=== PATIENT | female | born 1970 | race Hispanic/Latino ===

== ENCOUNTER → 2018-08-21 | Outpatient (CLI) | payer BC ==
[~2018-08-21] VITALS: Ht 165.1 cm; Wt 71.6 kg
[~2018-08-21] MED LIST: APIX5TAB PO; DABI150C PO; DRON400T2 PO; FURO80TA3 PO; MEDR150D9 IM; METO2.5T2 PO; POTASSIUM CHLORIDE 10MEQ/100ML 100 ML IV SCH; SODIUM CHLORIDE 0.9% 1000ML 1,000 ML IV SCH; SPIR25TA6 PO; SPIR50TA5 PO; VERA180C2 PO; VERA300C2 PO; digoxin PO
[2018-08-21 12:23] LABS: BASOPHILS % (AUTO) 0.6 % (0.0-5.0); EOSINOPHILS % (AUTO) 1.8 % (0.0-8.0); HEMATOCRIT 39.4 % (36-48); LYMPHOCYTES % (AUTO) 14.8 % (21.0-51.0); MEAN CORPUSCULAR HEMOGLOBIN 30.2 pg (27.0-33.0); MEAN CORPUSCULAR HGB CONC 34.1 g/dL (32.0-36.0); MEAN CORPUSCULAR VOLUME 88.6 fL (79-99); MONOCYTES % (AUTO) 4.6 % (3.0-13.0); NEUTROPHILS % (AUTO) 78.2 % (40.0-77.0); PLATELET COUNT (AUTO) 373 K/uL (130-400); RED BLOOD CELL COUNT(AUTO) 4.45 MIL/uL (4.00-5.50); RED CELL DISTRIBUTION WIDTH 14.3 % (11.0-15.5); WHITE BLOOD COUNT (AUTO) 16.7 K/uL (4.8-10.8)
[2018-08-21 12:30] LABS: CREATININE 1.1 mg/dL (0.5-1.5); POTASSIUM 3.1 mmol/L (3.5-5.1)
[2018-08-21 12:36] LABS: INR 0.99 (0.85-1.15); PARTIAL THROMBOPLASTIN TIME 36.9 SEC (26.3-35.5); PROTHROMBIN TIME 10.4 SEC (9.6-11.6)
[2018-08-21 12:43] VITALS: BP 117/59
--- NOTE | 2018-08-22 09:45 | NUR ---
LATE ENTRY: ABNORMAL LABS CALLED SAVITA PAUL TO REPORT ABNORMAL LABS; POTASSIUM 3.1, CL 95, WBC 16.7. PER OLEG, TO REPORT TO DR. SMITH.
--- NOTE | 2018-08-22 09:55 | NUR ---
ABNORMAL LABS CALLED ASVITA TALBERT TO REPORT POTASSIUM 3.1, CL 95, WBC 16.7. PER NASIMA, HE WILL CALL BACK WITH ORDERS. CALL BACK NUMBER PROVIDED.
--- NOTE | 2018-08-22 10:00 | NUR ---
ORDERS CALL BACK FROM SAVITA TALBERT. STATED OK TO PROCEED WITH KRISTI. GIVE POTASSIUM 20 MEQ/100ML INFUSE FOR 2 HOURS. MAY BE INFUSED WHILE DOING PROCEDURE.
--- NOTE | 2018-08-22 18:20 | NUR ---
PER DR. CURTIS, CANCEL PROCEDURE DUE TO ELEVATED WBC. WILL RESCHEDULE FOR NEXT WEEK. PT WILL GO TO HEART CLINIC ON Sunday08/27/2018 FOR REPEAT CBC. PT NOTIFIED.
== END ==
LOC: DAH 10:00 → EDSTATUS 11:00
PROVIDERS: ATTEND Internal Medicine Cardiovascular Disease
DX: Z01.818 Encounter for other preprocedural examination (principal); I48.1 Persistent atrial fibrillation
CPT/HCPCS: 36415; 80048; 84703; 85025; 85610; 85730

== ENCOUNTER 2018-09-30 07:55 | Day surgery (SDC) | payer BC ==
[2018-09-27 16:22] VITALS: BP 99/54
[2018-09-27 16:26] LABS: BASOPHILS % (AUTO) 0.9 % (0.0-5.0); EOSINOPHILS % (AUTO) 2.1 % (0.0-8.0); HEMATOCRIT 43.9 % (36-48); LYMPHOCYTES % (AUTO) 20.4 % (21.0-51.0); MEAN CORPUSCULAR HEMOGLOBIN 29.4 pg (27.0-33.0); MEAN CORPUSCULAR HGB CONC 33.9 g/dL (32.0-36.0); MEAN CORPUSCULAR VOLUME 86.6 fL (79-99); MONOCYTES % (AUTO) 5.9 % (3.0-13.0); NEUTROPHILS % (AUTO) 70.7 % (40.0-77.0); PLATELET COUNT (AUTO) 434 K/uL (130-400); RED BLOOD CELL COUNT(AUTO) 5.07 MIL/uL (4.00-5.50); RED CELL DISTRIBUTION WIDTH 13.6 % (11.0-15.5); WHITE BLOOD COUNT (AUTO) 15.4 K/uL (4.8-10.8)
[2018-09-27 16:43] LABS: CREATININE 1.2 mg/dL (0.5-1.5)
[2018-09-27 17:00] LABS: INR 1.01 (0.85-1.15); PARTIAL THROMBOPLASTIN TIME 40.4 SEC (26.3-35.5); PROTHROMBIN TIME 10.6 SEC (9.6-11.6)
--- NOTE | 2018-09-27 17:15 | NUR ---
LABS INFORMED JORGE CRENSHAW OF ABNORMAL WBC AND POTASSIUM. ORDERS RECEIVED TO REDRAW BMP AND COLLECT UA ON AM OF PROCEDURE AND CALL PT TO HAVE HER TAKE HER POTASSIUM SUPPLEMENT OF 20MEQ BID INSTEAD OF DAILY. PROCEED WITH PLANNED PROCEDURE. CALLED PT ANF INFORMED TO START HER POTASSIUM 20 MEQ BID TODAY INSTEAD OF DAILY. VERBALIZED UNDERSTANDING.
[2018-09-30] VITALS (31 sets, daily range): BP systolic 90–132; BP diastolic 36–74
[~2018-09-30] VITALS: Ht 165.1 cm; Wt 71.9 kg
[~2018-09-30 07:55] MED LIST changes: -DABI150C PO; -POTASSIUM CHLORIDE 10MEQ/100ML 100 ML IV SCH; -SPIR25TA6 PO; +VERA180T13 PO; -VERA300C2 PO; -digoxin PO
[2018-09-30] MEDS ORDERED: MIDAZOLAM HCL 1 MG/ML 2ML VIAL ONE (08:03)
[2018-09-30] MEDS ORDERED: LIDOCAINE HCL 2% VISCOUS 15 ML UDCUP ONE (08:04)
[2018-09-30] MEDS ORDERED: FLUMAZENIL 0.1MG/1ML 5ML VIAL IV ONE (08:05)
[2018-09-30] MEDS ORDERED: NALOXONE HCL 0.4 MG/1 ML ML ONE (08:05)
[2018-09-30] MEDS ORDERED: FENTANYL CITRATE PF 50 MCG/1 ML 2ML VIAL ONE (08:13)
[2018-09-30 08:56] LABS: APPEARANCE,URINE Clear (CLEAR); BILIRUBIN,URINE Negative (NEGATIVE); COLOR,URINE Yellow (YELLOW); GLUCOSE, URINE (UA) Negative (NEGATIVE); KETONES,URINE Negative (NEGATIVE); LEUKOCYTE ESTERASE ,URINE Negative (NEGATIVE); NITRATE,URINE Negative (NEGATIVE); OCCULT BLOOD,URINE Trace (NEGATIVE); PH,URINE 6.5 (5.0-8.0); PROTEIN,URINE Negative (NEGATIVE); UROBILINOGEN,URINE 0.2 mg/dL (0.2-1.0)
[2018-09-30 09:02] LABS: CREATININE 1.1 mg/dL (0.5-1.5)
[2018-09-30 09:05] LABS: BACTERIA,URINE Rare /HPF (None Seen); RBC,URINE 0-1 /HPF (0-1); SQUAMOUS EPITHELIAL CELL,UR Rare /HPF (0-2); WBC,URINE 0-1 /HPF (0-1)
--- NOTE | 2018-09-30 12:30 | NUR ---
PROCEDURE KRISTI DR. CURTIS, KISHOR DERAS, SHELBI AND MYSELF IN ROOM. PT AWAKE ALERT ORIENTED X3. TIME OUT AT 1233. LIDOCAINE VISCOUS 15ML GIVEN ORALLY BY KISHOR DERAS [facility]. PT TOLERATED WELL. DR. CURTIS ORDER SEDATION, STARTED AT 1237. PLEASE SEE SEDATION FLOW SHEET. LAST DOSE OF SEDATION AT 1306. DR. CURTIS STARTED PROCEDURE, INSERTED SCOPE AT 1306. PT TOLERATING WELL, RESPONDED TO COMMANDS WELL, NOT IN ANY DISTRESS. BUBBLE STUDY AT 1314. PROCEDURE ENDED, SCOPE OUT AT 1322. PT AWAKE, TOLERATED PROCEDURE WELL. MD OUT OF ROOM AT 1338. Addendum: 09/30/18 at 1946 by RAHUL VARELA RN RN ADDENDUM: DR. CURTIS ORDERS TO HAVE IV FLUIDS NS 100 ML/HR DURING PROCEDURE, NS WIDE OPEN DURING LAST DOSE OF SEDATION.
--- NOTE | 2018-09-30 13:22 | NUR ---
IV FLUIDS NS BACK TO K[facility]
--- NOTE | 2018-09-30 13:44 | NUR ---
ORDERS DR. CURTIS DISCHARGE ORDERS, MAY DISCHARGE IN AN HOUR IF FULLY AWAKE. MAY HAVE DIET WHEN FULLY AWAKE. RESUME ALL MEDICATIONS, NO CHANGES, FOLLOW UP WITH DR. SMITH IN 1 WEEK.
--- NOTE | 2018-09-30 15:00 | NUR ---
DISCHARGE PT DISCHARGED VIA WHEELCHAIR WITH . PT STABLE. NO COMPLAINTS MADE. TOLERATED DIET WELL. DISCHARGE INSTRUCTIONS GIVEN TO AND PT, VERBALIZED UNDERSTANDING.
== END 2018-09-30 15:00 | disposition home or self-care (01) ==
LOC: DAH 07:55 → EDSTATUS 15:00 → DAH 15:00
PROVIDERS: ATTEND Internal Medicine Cardiovascular Disease
DX: I48.1 Persistent atrial fibrillation (principal); I05.2 Rheumatic mitral stenosis with insufficiency; R06.00 Dyspnea, unspecified; Z98.890 Other specified postprocedural states; Z88.0 Allergy status to penicillin; Z88.8 Allergy status to other drugs, medicaments and biological substances; Z95.2 Presence of prosthetic heart valve; Z79.899 Other long term (current) drug therapy
CPT/HCPCS: 36415 ×2; 80048 ×2; 81001; 84703; 85025; 85610; 85730; 93312; 93325; A4606; J2250; J3010; J7030; 93313; 99152; 99153; J2310; J3490

== ENCOUNTER 2019-02-06 08:16 | Day surgery (SDC) | payer BC ==
[2019-02-05 17:30] VITALS: BP 106/79
[2019-02-05 17:37] LABS: BASOPHILS % (AUTO) 0.7 % (0.0-5.0); EOSINOPHILS % (AUTO) 3.3 % (0.0-8.0); HEMATOCRIT 41.4 % (36-48); LYMPHOCYTES % (AUTO) 27.4 % (21.0-51.0); MEAN CORPUSCULAR HEMOGLOBIN 30.6 pg (27.0-33.0); MEAN CORPUSCULAR HGB CONC 34.4 g/dL (32.0-36.0); MEAN CORPUSCULAR VOLUME 89.2 fL (79-99); MONOCYTES % (AUTO) 5.3 % (3.0-13.0); NEUTROPHILS % (AUTO) 63.3 % (40.0-77.0); PLATELET COUNT (AUTO) 267 K/uL (130-400); RED BLOOD CELL COUNT(AUTO) 4.64 MIL/uL (4.00-5.50); RED CELL DISTRIBUTION WIDTH 13.5 % (11.0-15.5); WHITE BLOOD COUNT (AUTO) 11.3 K/uL (4.8-10.8)
[2019-02-05 17:58] LABS: POTASSIUM 2.7 mmol/L (3.5-5.1)
--- NOTE | 2019-02-05 18:00 | NUR ---
LAB ATTEMPT TO CALL DR. BASURTO TO REPORT K+ 2.7, MESSAGE LEFT ON HIS CELL PHONE, AWAITING FOR FURTHER ORDERS .
[2019-02-05 18:01] LABS: INR 0.97 (0.85-1.15); PARTIAL THROMBOPLASTIN TIME 26.3 SEC (26.3-35.5)
--- NOTE | 2019-02-05 18:13 | NUR ---
LAB RECEIVED CALL BACK FROM DR. BASURTO. PATIENT TO TAKE POTASSIUM 40 MEQ TONIGHT AND IN AM, WILL RECHECK K+ AND MAG LEVELS IN AM, PATIENT WAS CALLED AND INSTRUCTED ON THAT, SHE VERBALIZED UNDERSTANDING.
--- NOTE | 2019-02-05 18:16 | NUR ---
LABS ALSO REPORTED ELEVATED WBC, NO FURTHER ORDERS GIVEN ON THAT
[~2019-02-06] VITALS: Ht 163.8 cm; Wt 71.9 kg
[2019-02-06] VITALS (17 sets, daily range): BP systolic 73–108; BP diastolic 52–75
[~2019-02-06 08:16] MED LIST changes: -DRON400T2 PO; +POTA-79 PO; +PROP225C8 PO; -VERA180C2 PO
--- NOTE | 2019-02-06 09:25 | NUR ---
RE:HYPERTENSION INFORMED SAVITA SMITH REGARDING LOW BLOOD PRESSURE 87/61 AND PULSE 146. PATIENT ASYMPTOMATIC AND TOOK ALL HER BP MEDS THIS MORNING. PER LUIS, OK TO PROCEED WITH CARDIOVERSION AND CALL BACK IF PATIENT BECOMES UNSTABLE. INFORMED LUIS REGARDING PATIENT'S POTASSIUM LEVEL 3.4 AND MAGNESIUM 1.70. NO NEW ORDERS RECEIVED.
[2019-02-06 09:38] LABS: MAGNESIUM 1.7 mg/dL (1.80-2.40); POTASSIUM 3.4 mmol/L (3.5-5.1)
[2019-02-06] MEDS ORDERED: PROPOFOL 10 MG/ML 20ML VIAL IV ONE (10:14)
[2019-02-06] MEDS ORDERED: SUCCINYLCHOLINE 200MG/10ML SYR ONE (10:14)
--- NOTE | 2019-02-06 11:00 | NUR ---
PT TIME OUT CALLED, FOR CARDIOVERSION, PERSONS IN ROOM ARE DR. BASURTO, DR. LANGE, TARYN ARCE RN , TOSHIA KRISHNAN RN
--- NOTE | 2019-02-06 11:02 | NUR ---
PROCEDURE STARTED, PRE VS 1268/52, HR 73, SPO2 100 @ 4 LITERS RESP 15
--- NOTE | 2019-02-06 11:03 | NUR ---
PT CHARGED AT 200 J WITH NO CONVERSIONS, PT TOLERATED 1 ST ATTEMPT
--- NOTE | 2019-02-06 11:04 | NUR ---
2 ND ATTEMPT TO CARDIOVERT @ 200J, PT CONVERTED NORMAL SINUS PER DR. DANIELSON,.
--- NOTE | 2019-02-06 11:04 | NUR ---
PT V/S AFTER 1 ST ATTEMPT CARDIO VERSION 88/65, HR 130,SPO2 100 % @ 4 LITERS N/C, 20 RESP . PT STABLE
--- NOTE | 2019-02-06 11:05 | NUR ---
PT STABLE IN NORMAL SINUS, V/S POST 99/66, 88 HR, SPO2 95 RESP, 17,
--- NOTE | 2019-02-06 11:06 | NUR ---
PT NOT FULLY AWAKE YET, STABLE V/S 99/60, SPO2 96 ON RM AIR RESP 14, HR 76. WILL CONTINUE TO MONITOR PT.
--- NOTE | 2019-02-06 11:07 | NUR ---
PT AWAKE STILL DROWSY, ABLE TO FOLLOW COMMANDS, AND STABLE, VS 97/58, HR 94, RESP 14, SPO2 96. WILL CONTINUE TO MONITOR PATIENT
--- NOTE | 2019-02-06 11:08 | NUR ---
PT FULLY AWAKE, HR, 93, 97 SPO2, RESP 14, B/P 97/58, FAMILY AT BEDSIDE NO COMPLICATION WITH PROCEDURE.
--- NOTE | 2019-02-06 11:12 | NUR ---
PER SHERINE PUENTES GIVE VERBAL ORDER OF 10MEQ IV, AND 2 MG OF MAGNESIUM IV. K IS 3.4 PT STABLE VS, 90HR , 100%, RES 22, B/P 93/59. WILL CONTINUE TO MONITOR, PT. FULLY AWAY, NO COMPILATION OR PAIN STILL IN SINUS
[2019-02-06] MEDS ORDERED: POTASSIUM CHLORIDE 10MEQ/100ML 10 MEQ/100 ML ML IV SCH (11:30)
[2019-02-06] MEDS ORDERED: MAGNESIUM 2GM PREMIX 50ML 50 ML IV PRN (11:30)
[2019-02-06] MEDS ORDERED: POTASSIUM CHLORIDE 20MEQ/100ML 100 ML IV PRN (11:45)
[2019-02-06] MEDS ORDERED: LIDOCAINE HCL-MPF 1% 2ML VIAL IV PRN (11:45)
[2019-02-06] MEDS ORDERED: POTASSIUM CHLORIDE 10MEQ/100ML 100 ML IV PRN (12:15)
--- NOTE | 2019-02-06 12:45 | NUR ---
K STARTED WITH 1 ML OF LIDOCAINE. 60ML HR
[2019-02-06] MEDS ORDERED: POTASSIUM CHLORIDE 10MEQ/100ML 100 ML IV ONE (13:00)
[2019-03-06] MEDS ORDERED: POTA-79 PO (16:35)
[2019-03-06] MEDS ORDERED: METO-408 PO (16:35)
== END 2019-02-06 16:00 | disposition home or self-care (01) ==
LOC: DAH 08:16
PROVIDERS: ATTEND Internal Medicine Cardiovascular Disease
DX: I48.19 Other persistent atrial fibrillation (principal); I50.32 Chronic diastolic (congestive) heart failure; I48.3 Typical atrial flutter; G43.909 Migraine, unspecified, not intractable, without status migrainosus; Z88.0 Allergy status to penicillin; Z91.018 Allergy to other foods; Z88.8 Allergy status to other drugs, medicaments and biological substances; Z90.49 Acquired absence of other specified parts of digestive tract; Z79.01 Long term (current) use of anticoagulants; Z79.899 Other long term (current) drug therapy; Z98.890 Other specified postprocedural states; Z82.49 Family history of ischemic heart disease and other diseases of the circulatory system; Z83.3 Family history of diabetes mellitus
CPT/HCPCS: 36415 ×2; 80048; 83735; 84132; 84703; 85025; 85610; 85730; 92960; 93005 ×2; 96365; 96366; A4215; A4216; A4221; A4222; A4223 ×3; A4606; A4663; J0330; J2704; J3475; J3490; 99156

== ENCOUNTER 2019-03-07 05:58 | Day surgery (SDC) | payer BC ==
[2019-03-06 15:57] VITALS: BP 83/61
[2019-03-06 16:04] LABS: BASOPHILS % (AUTO) 0.7 % (0.0-5.0); EOSINOPHILS % (AUTO) 5.3 % (0.0-8.0); LYMPHOCYTES % (AUTO) 31.7 % (21.0-51.0); MEAN CORPUSCULAR HEMOGLOBIN 29.9 pg (27.0-33.0); MEAN CORPUSCULAR HGB CONC 33.3 g/dL (32.0-36.0); MEAN CORPUSCULAR VOLUME 89.7 fL (79-99); MONOCYTES % (AUTO) 7.6 % (3.0-13.0); NEUTROPHILS % (AUTO) 54.4 % (40.0-77.0); PLATELET COUNT (AUTO) 343 K/uL (130-400); RED BLOOD CELL COUNT(AUTO) 4.68 MIL/uL (4.00-5.50); RED CELL DISTRIBUTION WIDTH 13.5 % (11.0-15.5); WHITE BLOOD COUNT (AUTO) 9.4 K/uL (4.8-10.8)
[2019-03-06 16:17] LABS: INR 1.04 (0.85-1.15); PARTIAL THROMBOPLASTIN TIME 28.8 SEC (26.3-35.5); PROTHROMBIN TIME 10.9 SEC (9.6-11.6)
[2019-03-06 16:18] LABS: CREATININE 1.2 mg/dL (0.5-1.5); POTASSIUM 3.6 mmol/L (3.5-5.1)
--- NOTE | 2019-03-06 16:36 | NUR ---
PT TAKING SEVERAL BLOOD PRESSURE MEDICATIONS, I CALLED LUIS BARNEY AND ADVISED HER PT BP 83/61, NEW ORDER TO HOLD FUROSEMIDE AND SPIRONOLACTONE AND METOPROLOL BUT PT STATED SHE TOOK THE EVENING DOSES ALREADY, ADVISED PT TO HOLD FUROSEMIDE AND SPIRONOLACTONE IN AM AND TO BRING ALL HER BP MEDS PER LUIS LARA.
[~2019-03-07] VITALS: Ht 162.6 cm; Wt 72.0 kg
[2019-03-07] VITALS (10 sets, daily range): BP systolic 83–99; BP diastolic 52–63
[~2019-03-07 05:58] MED LIST changes: +METO-408 PO
[2019-03-07] MEDS ORDERED: ATROPINE SULFATE 0.1 MG/ML 10 ML SYG IVP ONE (07:40)
[2019-03-07] MEDS ORDERED: LIDOCAINE PF 2% 5ML ABBOJECT ONE (07:52)
[2019-03-07] MEDS ORDERED: PROPOFOL 10 MG/ML 20ML VIAL IV ONE (07:52)
[2019-03-07] MEDS ORDERED: SUCCINYLCHOLINE 200MG/10ML SYR ONE (07:52)
--- NOTE | 2019-03-07 09:00 | NUR ---
CARDIOVERSION WITH ANESTESIA PERFORMED AT BEDSIDE BY DR BASURTO TIME OUT DONE: 8:17 AM STARTED AT 8:18 AM SHOCKED TIME X 1 DELIVERED AT 8:19 AM @ 15 JOULES FINISHED PROCEDURE TIME 8:20 AM RECOVERY STARED AT0 8:20 AM PT TOLERATED WELL WITH NO DISCOMFORT. PATIENT CONVERTED , VS STABLE AND BOTH DR. BASURTO AND DR. GALLAGHER OUT OF THE ROOM AT 8:29 AM. MD SPOKE WITH FAMILY PT WILL BE DISCHARGED WHEN FULLY AWAKE AND STABLE
--- NOTE | 2019-03-07 09:30 | NUR ---
PT. LEFT VIA WHEELCHAIR IN PVT CAR, WITH D/C INSTRUCTION GIVEN TO MOTHER. NO COMPLICATION UPON D/C PT IN SR AND STABLE.
== END 2019-03-07 09:30 | disposition home or self-care (01) ==
LOC: DAH 05:58
PROVIDERS: ATTEND Internal Medicine Cardiovascular Disease
DX: I48.91 Unspecified atrial fibrillation (principal); I50.9 Heart failure, unspecified; Z79.899 Other long term (current) drug therapy
CPT/HCPCS: 36415; 80048; 84703; 85025; 85610; 85730; 92960; 93005 ×2; A4215; A4216; A4221; A4222; A4223 ×3; A4606; A4663; J0330; J2001; J2704; J7030; J0461

== ENCOUNTER 2019-08-04 07:42 | Inpatient (IN) | payer BC, OTHER ==
[~2019-08-04] VITALS: Ht 162.6 cm; Wt 71.8 kg
[~2019-08-04 07:42] MED LIST changes: -SODIUM CHLORIDE 0.9% 1000ML 1,000 ML IV SCH
[2019-08-04 08:12] LABS: BASOPHILS % (AUTO) 0.7 % (0.0-5.0); EOSINOPHILS % (AUTO) 4.7 % (0.0-8.0); HEMATOCRIT 39.4 % (36-48); LYMPHOCYTES % (AUTO) 33.9 % (21.0-51.0); MEAN CORPUSCULAR HEMOGLOBIN 29.9 pg (27.0-33.0); MEAN CORPUSCULAR HGB CONC 33.5 g/dL (32.0-36.0); MEAN CORPUSCULAR VOLUME 89.1 fL (79-99); MONOCYTES % (AUTO) 6.3 % (3.0-13.0); NEUTROPHILS % (AUTO) 54.2 % (40.0-77.0); PLATELET COUNT (AUTO) 278 K/uL (130-400); RED BLOOD CELL COUNT(AUTO) 4.42 MIL/uL (4.00-5.50); RED CELL DISTRIBUTION WIDTH 13.3 % (11.0-15.5); WHITE BLOOD COUNT (AUTO) 8.1 K/uL (4.8-10.8)
[2019-08-04 08:24] LABS: INR 0.98 (0.85-1.15); PARTIAL THROMBOPLASTIN TIME 29.4 SEC (26.3-35.5); PROTHROMBIN TIME 10.6 SEC (9.6-11.6)
[2019-08-04 08:46] LABS: POTASSIUM 3.4 mmol/L (3.5-5.1)
[2019-08-04 08:51] LABS: BILIRUBIN,TOTAL 0.6 mg/dL (0.2-1.0); TOTAL PROTEIN, SERUM 7.5 g/dL (6.0-8.3)
[2019-08-04] MEDS ORDERED: POTASSIUM CHLORIDE 20 MEQ ERTAB PO ONE ×2 (09:08→22:14)
[2019-08-04] MEDS ORDERED: SOTALOL HCL 80 MG TABLET PO SCH (13:00)
[2019-08-04] MEDS ORDERED: ONDANSETRON HCL 4 MG/2 ML VIAL IV PRN (18:15)
[2019-08-04] MEDS ORDERED: LACTULOSE 20 GM/30 ML UDCUP PO PRN (18:15)
[2019-08-04] MEDS ORDERED: ACETAMINOPHEN 325 MG TAB PO PRN ×2 (18:15)
[2019-08-04] MEDS ORDERED: FUROSEMIDE 40 MG TABLET ONE (18:51)
[2019-08-04] MEDS ORDERED: SPIRONOLACTONE 25 MG TAB ONE (22:14)
[2019-08-04] MEDS ORDERED: FAMOTIDINE/PF 20 MG/2 ML VIAL IV ONE (22:15)
[2019-08-05] MEDS ORDERED: APIXABAN 2.5 MG TABLET PO ONE (08:32)
[2019-08-05] MEDS ORDERED: FUROSEMIDE 40 MG TABLET ONE (08:32)
[2019-08-05] MEDS ORDERED: POTASSIUM CHLORIDE 20 MEQ ERTAB PO ONE (08:32)
[2019-08-05] MEDS ORDERED: FAMOTIDINE/PF 20 MG/2 ML VIAL IV ONE (08:33)
[2019-08-05] MEDS ORDERED: SPIRONOLACTONE 25 MG TAB ONE (08:33)
[2019-08-05] MEDS: SOTALOL HCL 80 MG TABLET PO SCH ×3 (09:00→21:37)
[2019-08-05] MEDS: SPIRONOLACTONE 25 MG TAB PO SCH ×3 (09:00→21:36)
[2019-08-05] MEDS: VERAPAMIL HCL 180 MG PO SCH (09:00)
[2019-08-05] MEDS: APIXABAN 5 MG TABLET PO SCH ×3 (09:00→21:35)
[2019-08-05] MEDS: FAMOTIDINE/PF 20 MG/2 ML VIAL IV SCH ×3 (09:00→21:35)
[2019-08-05] MEDS: FUROSEMIDE 80 MG TABLET PO SCH ×3 (09:00→21:36)
[2019-08-05] MEDS: POTASSIUM CHLORIDE 20 MEQ ERTAB PO SCH ×3 (09:00→21:36)
--- NOTE | 2019-08-05 15:19 | NUR ---
CALL TO PATIENT- NO ANSWER CALL TO SISITER ON FACE SHEET , NO ANSWER, CM /SW TO FOLLOW UP FOR IA
--- NOTE | 2019-08-05 15:52 | NUR ---
DCP: HOME Sw met with pt who lives independently at home with Yogi Aiken [phone]. Pt denies she uses DME or in home care services. Has not gotten new PCP since Dr Regan retired, uses [facility] for rx, Pt denies dc needs, plan is home at dc Addendum: 08/05/19 at 1554 by ANDREW MARTINEZ Amended: Links added.
[2019-08-05 20:12] VITALS: BP 101/70
[2019-08-06] VITALS (7 sets, daily range): BP systolic 88–100; BP diastolic 56–67
--- NOTE | 2019-08-06 01:54 | NUR ---
TELE Pt.s tele v paced 90's as per patient monitor.
[2019-08-06] MEDS: VERAPAMIL HCL 180 MG PO SCH (09:00)
[2019-08-06] MEDS: FAMOTIDINE/PF 20 MG/2 ML VIAL IV SCH ×2 (10:18→21:00)
[2019-08-06] MEDS: SPIRONOLACTONE 25 MG TAB PO SCH ×2 (10:19→21:37)
[2019-08-06] MEDS: APIXABAN 5 MG TABLET PO SCH ×2 (10:19→21:38)
[2019-08-06] MEDS: FUROSEMIDE 80 MG TABLET PO SCH ×2 (10:19→21:38)
[2019-08-06] MEDS: POTASSIUM CHLORIDE 20 MEQ ERTAB PO SCH ×2 (10:20→21:48)
[2019-08-06] MEDS: SOTALOL HCL 80 MG TABLET PO SCH ×2 (11:03→21:38)
[2019-08-06] MEDS ORDERED: SOTALOL HCL 80 MG TABLET PO SCH ×2 (21:00)
[2019-08-07 03:34] VITALS: BP 89/61
[2019-08-07 04:11] LABS: BASOPHILS % (AUTO) 0.8 % (0.0-5.0); EOSINOPHILS % (AUTO) 4.6 % (0.0-8.0); HEMATOCRIT 42.9 % (36-48); LYMPHOCYTES % (AUTO) 34.9 % (21.0-51.0); MEAN CORPUSCULAR HGB CONC 33.8 g/dL (32.0-36.0); MEAN CORPUSCULAR VOLUME 88.8 fL (79-99); NEUTROPHILS % (AUTO) 52.3 % (40.0-77.0); PLATELET COUNT (AUTO) 321 K/uL (130-400); RED BLOOD CELL COUNT(AUTO) 4.83 MIL/uL (4.00-5.50); RED CELL DISTRIBUTION WIDTH 12.8 % (11.0-15.5); WHITE BLOOD COUNT (AUTO) 10.6 K/uL (4.8-10.8)
[2019-08-07 04:18] LABS: CREATININE 1.3 mg/dL (0.5-1.5); MAGNESIUM 1.9 mg/dL (1.80-2.40); PHOSPHORUS 3.9 mg/dL (2.5-4.9); POTASSIUM 4.1 mmol/L (3.5-5.1)
[2019-08-07 04:43] LABS: B-TYPE NATRIURETIC PEPTIDE 360 pg/mL (0-100)
[2019-08-07 07:58] VITALS: BP 102/64
[2019-08-07] MEDS ORDERED: LIDOCAINE HCL-MPF 1% 2ML VIAL ONE (08:15)
[2019-08-07] MEDS ORDERED: PROPOFOL 10 MG/ML 20ML VIAL IV ONE (08:15)
--- NOTE | 2019-08-07 09:00 | NUR ---
Cardioversion performed at bedside by Dr Foster at 0840; QUALITY ENGINEERING MANAGER also at bedside; patient tolerated procedure well with no issues; shocked x1. Patient arousable by 0850 with no complaints at this time. will continue to monitor
[2019-08-07] MEDS ORDERED: SOTA160T PO (09:36)
[2019-08-07] MEDS ORDERED: VERA120T13 PO (09:36)
[2019-08-07] MEDS: SPIRONOLACTONE 25 MG TAB PO SCH (10:44)
[2019-08-07] MEDS: APIXABAN 5 MG TABLET PO SCH (10:44)
[2019-08-07] MEDS: POTASSIUM CHLORIDE 20 MEQ ERTAB PO SCH (10:44)
[2019-08-07] MEDS: FAMOTIDINE/PF 20 MG/2 ML VIAL IV SCH (10:45)
[2019-08-07] MEDS: SOTALOL HCL 80 MG TABLET PO SCH (10:45)
[2019-08-07] MEDS: VERAPAMIL HCL 180 MG PO SCH (10:45)
[2019-08-07] MEDS: FUROSEMIDE 80 MG TABLET PO SCH (10:56)
[2019-08-07 12:00] VITALS: BP 91/57
[2019-08-07 16:00] VITALS: BP 96/59
[2019-08-11] MEDS ORDERED: METOLAZONE 2.5 MG TABLET PO SCH (09:00)
== END 2019-08-07 18:40 | disposition home or self-care (01) | DRG 308 ==
LOC: EDH 07:42 → EDHIP 18:32 → 4CH 08-05 20:27
PROVIDERS: ADMIT Internal Medicine; ATTEND Internal Medicine
PROC: 5A2204Z Restoration of Cardiac Rhythm, Single (ICD-10-PCS; principal; 2019-08-07)
PROC: 4B02XSZ Measurement of Cardiac Pacemaker, External Approach (ICD-10-PCS; 2019-08-07)
DX: I48.19 Other persistent atrial fibrillation (principal); I50.33 Acute on chronic diastolic (congestive) heart failure; I47.1 Supraventricular tachycardia; Z95.0 Presence of cardiac pacemaker; Z79.01 Long term (current) use of anticoagulants; Z79.899 Other long term (current) drug therapy; Z88.0 Allergy status to penicillin; Z88.8 Allergy status to other drugs, medicaments and biological substances; Z91.018 Allergy to other foods; Z83.3 Family history of diabetes mellitus; Z82.0 Family history of epilepsy and other diseases of the nervous system; Z82.49 Family history of ischemic heart disease and other diseases of the circulatory system
CPT/HCPCS: 36415; 71046; 80048; 80053; 83735; 83880; 84100; 84132; 84443; 84484; 85025; 85610; 85730; 93005; G0378; J2704; J3490

== ENCOUNTER 2020-02-04 05:48 | Day surgery (SDC) | payer SELFPAY ==
[2020-02-03 15:55] LABS: BASOPHILS % (AUTO) 0.7 % (0.0-5.0); EOSINOPHILS % (AUTO) 6.4 % (0.0-8.0); HEMATOCRIT 37.6 % (36-48); LYMPHOCYTES % (AUTO) 31.8 % (21.0-51.0); MEAN CORPUSCULAR HEMOGLOBIN 30.8 pg (27.0-33.0); MEAN CORPUSCULAR HGB CONC 33.8 g/dL (32.0-36.0); MEAN CORPUSCULAR VOLUME 91.3 fL (79-99); MONOCYTES % (AUTO) 6.1 % (3.0-13.0); NEUTROPHILS % (AUTO) 54.8 % (40.0-77.0); PLATELET COUNT (AUTO) 243 K/uL (130-400); RED BLOOD CELL COUNT(AUTO) 4.12 MIL/uL (4.00-5.50); RED CELL DISTRIBUTION WIDTH 13.2 % (11.0-15.5); WHITE BLOOD COUNT (AUTO) 8.9 K/uL (4.8-10.8)
[2020-02-03 16:08] LABS: CREATININE 0.9 mg/dL (0.5-1.5); INR 0.92 (0.85-1.15); PARTIAL THROMBOPLASTIN TIME 27.3 SEC (26.3-35.5); POTASSIUM 3.6 mmol/L (3.5-5.1)
[2020-02-03 16:45] VITALS: BP 114/56
[2020-02-04] VITALS (9 sets, daily range): BP systolic 93–106; BP diastolic 45–62
[~2020-02-04] VITALS: Ht 162.6 cm; Wt 78.4 kg
[~2020-02-04 05:48] MED LIST changes: +CLINDAMYCIN 900 MG/D5% WATER 50 ML IV SCH; +LINA72CA PO; -METO-408 PO; -PROP225C8 PO; +ROSU20TA31 PO; +SOTA160T PO; +VERA180T12 PO; -VERA180T13 PO
[2020-02-04] MEDS ORDERED: SODIUM CHLORIDE 0.9% 1000ML 1,000 ML IV ONE (06:09)
[2020-02-04] MEDS ORDERED: LIDOCAINE HCL 2% 20ML ONE (07:19)
[2020-02-04] MEDS ORDERED: MIDAZOLAM HCL 1 MG/ML 2ML VIAL ONE ×5 (08:05→11:03)
[2020-02-04] MEDS ORDERED: MEPERIDINE-PF 25 MG/ML SYG ONE ×5 (08:06→11:03)
[2020-02-04] MEDS ORDERED: BUPIVACAINE/PF 0.25% 30ML VIAL IJ ONE (10:41)
[2020-02-04] MEDS ORDERED: LIDOCAINE HCL 1% MDV 50ML VIAL ONE (10:42)
[2020-02-04] MEDS ORDERED: VANCOMYCIN 1GM+NS 250ML 500 ML IV ONE (10:42)
[2020-02-04] MEDS ORDERED: VANCOMYCIN 1GM+NS 250ML 250 ML IV ONE (10:46)
--- NOTE | 2020-02-04 12:00 | NUR ---
post received pt back from laborer pipeline. s/p unsucessful av ablation and pacemaker changeout. left upper chest dressing dry and intact. no bleeding or hematoma to site. right groin with dressing dry and intact. no hematoma or bleeding to site. vs stable on arrival. plan of care discuss withpt pts mom. pt awake and alert in bed no distressnoted , pt denied any pain or discomforts. call light within reach.
--- NOTE | 2020-02-04 15:10 | NUR ---
dc pt dc home via wc,no distress noted. pt denied any pain or discomforts. pt accompanied by mom. left upper chest with dressing d&i. right groin with dressing dry and intact, no bleeding or hematoma to site. dc instructions reinforced again with pt/ pts mom , both verbalized understanding.
== END 2020-02-04 15:10 | disposition home or self-care (01) ==
LOC: DAH 05:48
PROVIDERS: ATTEND Internal Medicine Cardiovascular Disease
DX: Z45.010 Encounter for checking and testing of cardiac pacemaker pulse generator [battery] (principal); I49.5 Sick sinus syndrome; I48.0 Paroxysmal atrial fibrillation; I50.32 Chronic diastolic (congestive) heart failure; G43.909 Migraine, unspecified, not intractable, without status migrainosus; Z88.8 Allergy status to other drugs, medicaments and biological substances; Z88.0 Allergy status to penicillin; Z98.890 Other specified postprocedural states; Z90.49 Acquired absence of other specified parts of digestive tract; Z95.2 Presence of prosthetic heart valve; Z79.01 Long term (current) use of anticoagulants; Z79.899 Other long term (current) drug therapy
CPT/HCPCS: 33228; 36415; 80048; 84703; 85025; 85610; 85730; 93650; A4215; A4216; A4221; A4222; A4223 ×3; A4606; A4649 ×2; A4663; C1732 ×2; C1785; C1894; J1644 ×2; J2175 ×5; J2250 ×5; J3370 ×2; J3490 ×3; J7030 ×2; 99156; 99157

== ENCOUNTER → 2023-12-07 | Outpatient (CLI) | payer BC ==
[~2023-12-07] MED LIST changes: -CLINDAMYCIN 900 MG/D5% WATER 50 ML IV SCH; +POTA-364 PO; -POTA-79 PO; -ROSU20TA31 PO; +ROSU20TA73 PO; -VERA180T12 PO; +VERA180T61 PO
[2023-12-07 13:03] LABS: BASOPHILS # (AUTO) 0.05 K/uL (0.00-0.20); BASOPHILS % (AUTO) 0.6 % (0.0-5.0); EOSINOPHILS # (AUTO) 0.44 K/uL (0.00-0.70); EOSINOPHILS % (AUTO) 5.6 % (0.0-8.0); HEMATOCRIT 42.5 % (36-48); IMMATURE GRANULOCYTE ABSOLUTE 0.01 K/uL (0-1); LYMPHOCYTES # (AUTO) 1.8 K/uL (1.0-4.8); LYMPHOCYTES % (AUTO) 23.2 % (21.0-51.0); MEAN CORPUSCULAR HGB CONC 32.2 g/dL (32.0-36.0); MONOCYTES # (AUTO) 0.7 K/uL (0.1-1.0); MONOCYTES % (AUTO) 8.4 % (3.0-13.0); NEUTROPHILS # (AUTO) 4.9 K/uL (1.8-7.7); NEUTROPHILS % (AUTO) 62.1 % (40.0-77.0); PLATELET COUNT (AUTO) 312 K/uL (130-400); RED BLOOD CELL COUNT(AUTO) 4.72 MIL/uL (4.00-5.50); RED CELL DISTRIBUTION WIDTH 13.9 % (11.0-15.5); WHITE BLOOD COUNT (AUTO) 7.8 K/uL (4.8-10.8)
[2023-12-07 13:42] LABS: ALBUMIN 4.1 g/dL (3.5-5.0); BILIRUBIN,TOTAL 1.4 mg/dL (0.2-1.0); CREATININE 1.5 mg/dL (0.5-1.0); POTASSIUM 4.7 mmol/L (3.5-5.1); THYROID STIMULATING HORMONE 2.06 uIU/mL (0.36-3.74); TOTAL PROTEIN, SERUM 8.4 g/dL (6.0-8.3)
[2023-12-07 13:45] LABS: B-TYPE NATRIURETIC PEPTIDE 122 pg/mL (0-100)
== END | disposition home or self-care (01) ==
LOC: LAB 09:37
PROVIDERS: ATTEND Internal Medicine Cardiovascular Disease
DX: I48.0 Paroxysmal atrial fibrillation (principal); E78.5 Hyperlipidemia, unspecified; I50.32 Chronic diastolic (congestive) heart failure
CPT/HCPCS: 36415; 80053; 80061; 82607; 83036; 83880; 84443; 85025

== ENCOUNTER → 2024-03-20 | Outpatient (CLI) | payer BC ==
[~2024-03-20] MED LIST changes: -ROSU20TA73 PO; +ROSU20TA98 PO
[2024-03-20 17:54] LABS: CREATININE 0.9 mg/dL (0.5-1.0); MAGNESIUM 1.8 mg/dL (1.80-2.40); POTASSIUM 4.1 mmol/L (3.5-5.1)
== END | disposition home or self-care (01) ==
LOC: LAB 11:28
PROVIDERS: ATTEND Internal Medicine Cardiovascular Disease
DX: I48.0 Paroxysmal atrial fibrillation (principal)
CPT/HCPCS: 36415; 80048; 83735; 83880

== ENCOUNTER → 2024-05-30 | Outpatient (CLI) | payer BC ==
[2024-05-30 12:21] LABS: BASOPHILS # (AUTO) 0.06 K/uL (0.00-0.20); BASOPHILS % (AUTO) 0.7 % (0.0-5.0); EOSINOPHILS % (AUTO) 4.8 % (0.0-8.0); HEMATOCRIT 44.5 % (36-48); IMMATURE GRANULOCYTE ABSOLUTE 0.03 K/uL (0-1); LYMPHOCYTES # (AUTO) 1.8 K/uL (1.0-4.8); LYMPHOCYTES % (AUTO) 21.6 % (21.0-51.0); MEAN CORPUSCULAR HEMOGLOBIN 26.8 pg (27.0-33.0); MEAN CORPUSCULAR HGB CONC 30.6 g/dL (32.0-36.0); MEAN CORPUSCULAR VOLUME 87.8 fL (79-99); MONOCYTES # (AUTO) 0.4 K/uL (0.1-1.0); NEUTROPHILS # (AUTO) 5.6 K/uL (1.8-7.7); NEUTROPHILS % (AUTO) 67.5 % (40.0-77.0); PLATELET COUNT (AUTO) 358 K/uL (130-400); RED BLOOD CELL COUNT(AUTO) 5.07 MIL/uL (4.00-5.50); RED CELL DISTRIBUTION WIDTH 15.2 % (11.0-15.5); WHITE BLOOD COUNT (AUTO) 8.3 K/uL (4.8-10.8)
[2024-05-30 12:54] LABS: ALBUMIN 3.5 g/dL (3.5-5.0); BILIRUBIN,TOTAL 0.8 mg/dL (0.2-1.0); CREATININE 0.8 mg/dL (0.5-1.0); POTASSIUM 4.2 mmol/L (3.5-5.1); TOTAL PROTEIN, SERUM 7.8 g/dL (6.0-8.3)
== END | disposition home or self-care (01) ==
LOC: LAB 10:27
PROVIDERS: ATTEND Internal Medicine Cardiovascular Disease
DX: I05.0 Rheumatic mitral stenosis (principal); I48.19 Other persistent atrial fibrillation
CPT/HCPCS: 36415; 80053; 85025

== ENCOUNTER 2024-08-12 06:35 | Day surgery (SDC) | payer BC ==
--- NOTE | 2024-08-08 10:48 | EKG ---
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
[2024-08-08 10:55] LABS: BASOPHILS # (AUTO) 0.05 K/uL (0.00-0.20); BASOPHILS % (AUTO) 0.7 % (0.0-5.0); EOSINOPHILS # (AUTO) 0.36 K/uL (0.00-0.70); HEMATOCRIT 45.8 % (36-48); IMMATURE GRANULOCYTE ABSOLUTE 0.03 K/uL (0-1); LYMPHOCYTES # (AUTO) 2.2 K/uL (1.0-4.8); LYMPHOCYTES % (AUTO) 30.5 % (21.0-51.0); MEAN CORPUSCULAR HEMOGLOBIN 26.6 pg (27.0-33.0); MEAN CORPUSCULAR HGB CONC 30.8 g/dL (32.0-36.0); MEAN CORPUSCULAR VOLUME 86.3 fL (79-99); MONOCYTES # (AUTO) 0.4 K/uL (0.1-1.0); MONOCYTES % (AUTO) 5.8 % (3.0-13.0); NEUTROPHILS # (AUTO) 4.2 K/uL (1.8-7.7); NEUTROPHILS % (AUTO) 57.6 % (40.0-77.0); PLATELET COUNT (AUTO) 239 K/uL (130-400); RED BLOOD CELL COUNT(AUTO) 5.31 MIL/uL (4.00-5.50); RED CELL DISTRIBUTION WIDTH 17.4 % (11.0-15.5); WHITE BLOOD COUNT (AUTO) 7.2 K/uL (4.8-10.8)
[2024-08-08 11:07] VITALS: BP 110/49; PULSE 50; RESP 18; TEMP 97.9
[2024-08-08 11:07] LABS: POTASSIUM 4.9 mmol/L (3.5-5.1)
[2024-08-08 12:11] LABS: INR 1.88 (0.85-1.15); PROTHROMBIN TIME 18.7 SEC (9.6-11.6)
--- NOTE | 2024-08-08 15:57 | NUR ---
RE: LABS REPORTED PT 18.7/INR [address] BASURTO. PER MD, HAVE PATIENT CONTINUE WARFARIN AND WILL RECHECK LABS ON DAY OF PROCEDURE. CALLED PATIENT'S SISTER (TJ) AND INFORMED HER TO HAVE PATIENT CONTINUE WARFARIN.
[~2024-08-12] VITALS: Ht 162.6 cm; Wt 65.8 kg
[~2024-08-12 06:35] MED LIST changes: -APIX5TAB PO; +ATOR10 PO; +CHOL-34 PO; +DAPA10TA PO; +DIGO125T71 PO; +FOLI1TAB85 PO; -FURO80TA3 PO; -LINA72CA PO; -MEDR150D9 IM; -METO2.5T2 PO; +METO75TA PO; -POTA-364 PO; -ROSU20TA98 PO; -SOTA160T PO; -SPIR50TA5 PO; -VERA180T61 PO; +WARF2.5T85 PO
[2024-08-12 08:00] VITALS: BP 109/57; PULSE 77; RESP 15; TEMP 97.3
[2024-08-12 08:41] LABS: INR 2.72 (0.85-1.15); PROTHROMBIN TIME 26.1 SEC (9.6-11.6)
--- NOTE | 2024-08-12 08:45 | NUR ---
DR. BASURTO MADE AWARE OF CURRENT INR. HE STATED WE CANCEL PROCEDURE D/T ELEVATED INR. THIS INFORMATION WAS GIVEN TO PT AND MOTHER BOTH IN ROOM. PT DID STATE SHE HAD A FEELING IT WOULD BE CANCELLED STATING SHE CHECKED HER INR AT HOME YESTERDAY AND WAS ELEVATED WELL. SHE DID TELL US THERE WERE SOME ADJUSTMENTS TO HER COUMADIN THE PREVIOUS WEEK D/T LOW INR. I TOLD HER TO F/U WITH DR. BASURTO IN OFFICE ABOUT RESCHEDULING PROCEDURE AND LETTING HIM KNOW THE ADJUSTMENTS THAT WERE MADE.
== END 2024-08-12 09:05 | disposition home or self-care (01) ==
LOC: DAH 06:35
PROVIDERS: ATTEND Internal Medicine Cardiovascular Disease
DX: I48.21 Permanent atrial fibrillation (principal); Z53.8 Procedure and treatment not carried out for other reasons; I44.2 Atrioventricular block, complete; I50.32 Chronic diastolic (congestive) heart failure; I05.2 Rheumatic mitral stenosis with insufficiency; I48.92 Unspecified atrial flutter; Z79.01 Long term (current) use of anticoagulants; Z95.0 Presence of cardiac pacemaker; Z90.49 Acquired absence of other specified parts of digestive tract; Z79.899 Other long term (current) drug therapy; Z88.0 Allergy status to penicillin; Z88.8 Allergy status to other drugs, medicaments and biological substances
CPT/HCPCS: 36415; 80048; 84703; 85025; 85610; 85730; 93005

== ENCOUNTER 2024-08-19 06:22 | Day surgery (SDC) | payer BC ==
[2024-08-18 12:09] LABS: BASOPHILS # (AUTO) 0.06 K/uL (0.00-0.20); BASOPHILS % (AUTO) 0.9 % (0.0-5.0); EOSINOPHILS # (AUTO) 0.32 K/uL (0.00-0.70); EOSINOPHILS % (AUTO) 4.8 % (0.0-8.0); HEMATOCRIT 43.1 % (36-48); IMMATURE GRANULOCYTE ABSOLUTE 0.01 K/uL (0-1); LYMPHOCYTES # (AUTO) 2.1 K/uL (1.0-4.8); LYMPHOCYTES % (AUTO) 31.5 % (21.0-51.0); MEAN CORPUSCULAR HEMOGLOBIN 26.9 pg (27.0-33.0); MEAN CORPUSCULAR HGB CONC 31.1 g/dL (32.0-36.0); MEAN CORPUSCULAR VOLUME 86.5 fL (79-99); MONOCYTES # (AUTO) 0.4 K/uL (0.1-1.0); MONOCYTES % (AUTO) 5.6 % (3.0-13.0); NEUTROPHILS # (AUTO) 3.8 K/uL (1.8-7.7); PLATELET COUNT (AUTO) 211 K/uL (130-400); RED BLOOD CELL COUNT(AUTO) 4.98 MIL/uL (4.00-5.50); RED CELL DISTRIBUTION WIDTH 17.7 % (11.0-15.5); WHITE BLOOD COUNT (AUTO) 6.6 K/uL (4.8-10.8)
[2024-08-18 12:22] LABS: CREATININE 0.8 mg/dL (0.5-1.0)
[2024-08-18 12:23] LABS: INR 2.43 (0.85-1.15); PROTHROMBIN TIME 23.6 SEC (9.6-11.6)
[2024-08-18 12:24] LABS: PARTIAL THROMBOPLASTIN TIME 40.1 SEC (26.3-35.5)
[2024-08-18 12:26] VITALS: BP 118/56; PULSE 50; RESP 18; TEMP 97.3
--- NOTE | 2024-08-18 13:51 | EKG ---
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
--- NOTE | 2024-08-18 14:57 | NUR ---
REPORT DR BASURTO INFORMED OF INR. RECEIVED INSTRUCTIONS TO HOLD WARFARIN TODAY AND TOMORROW. SISTER NOTIFIED JOSHUA ROSE.
[2024-08-19] VITALS (10 sets, daily range): BP systolic 103–121; BP diastolic 45–54; PULSE 43–59; RESP 14–17; TEMP 97.3–97.4
[~2024-08-19] VITALS: Ht 162.6 cm; Wt 66.0 kg
[~2024-08-19 06:22] MED LIST changes: -ATOR10 PO; +ATOR20TA65 PO; -CHOL-34 PO; +CHOL100046 PO; +METO50TA18 PO; -METO75TA PO; -WARF2.5T85 PO; +WARFARIN PO
[2024-08-19] MEDS ORDERED: LIDOCAINE HCL 1% MDV 50ML VIAL ONE (11:14)
[2024-08-19] MEDS ORDERED: BUPIvacaine/PF 0.25% 30ML VIAL IJ ONE ×3 (11:14→11:55)
[2024-08-19] MEDS ORDERED: SODIUM BICARB 50MEQ 50ML VIAL 50 ML ONE ×2 (11:14→11:55)
[2024-08-19] MEDS ORDERED: ceFAZolin SODIUM 1 GM VIAL ONE (11:15)
[2024-08-19] MEDS ORDERED: HEParin-NS 1,000 UNIT/500 ML 500 ML IV ONE ×2 (11:18→13:44)
[2024-08-19] MEDS ORDERED: HEParin 10,000 UNIT/10ML (1,000 UNIT/ML) VIAL ONE (11:19)
[2024-08-19] MEDS ORDERED: VANCOMYCIN 1G/250ML KIT 500 ML IV ONE (11:36)
[2024-08-19] MEDS ORDERED: FENTanyl CITRate PF 50 MCG/1 ML 2ML VIAL ONE ×3 (11:38→13:24)
[2024-08-19] MEDS ORDERED: MIDAZOLAM HCL 1 MG/ML 2ML VIAL ONE ×5 (11:38→15:06)
[2024-08-19] MEDS ORDERED: IOHEXOL-350 50ML VIAL IV ONE ×2 (12:01→13:54)
[2024-08-19] MEDS ORDERED: LIDOCAINE HCL 400MG/20ML VIAL ONE (12:10)
[2024-08-19] MEDS ORDERED: NITROGLYCERIN 50MG VIAL ONE (14:18)
--- NOTE | 2024-08-19 14:50 | PRN ---
DATE OF PROCEDURE: 08/19/2024 PROCEDURE PERFORMED: LEFT HEART CATHETERIZATION, SELECTIVE LEFT CORONARY ANGIOGRAM, SELECTIVE RIGHT CORONARY ANGIOGRAM, RIGHT COMMON FEMORAL ANGIOGRAM CORPORATE ACCOUNTANT: DION CURTIS MD, [facility] INDICATION: ASSESS CORONARY SINUS WITH LEFT CORONARY ANGIOGRAM AND DELAYED IMAGING TO FACILITATE BIVENTRICULAR PACEMAKER LEAD PLACEMENT, CARDIOMYOPATHY, EXCLUDE CORONARY ARTERY DISEASE PROCEDURE NOTE: After informed consent was obtained the patient was prepped and draped in the usual sterile fashion. A 6 German arterial sheath was inserted in the right femoral artery using a modified Seldinger technique with a front wall, 2nd pass puncture. This was performed after fluoroscopic identification of bony landmarks to facilitate a more accurate puncture of the right common femoral artery. The arterial sheath was aspirated and flushed. A 6 German pigtail catheter was then advanced over a J-tipped guidewire to the ascending aorta and was prolapsed into the left ventricle. The catheter was aspirated and flushed and pressure measurements were obtained. No LV-gram was performed. A 6F JL-4 was then advanced to the ascending aorta over a J-tipped guidewire, was aspirated and flushed, and was used for selective left coronary angiograms in multiple obliquities. A JR-4 was advanced in a similar fashion to the ascending aorta over a J-tipped guidewire and was used for selective right coronary angiograms in multiple obliquities with findings as outlined below. A right common femoral angiogram was performed to assess suitability for Perclose suture closure, but arterial closure was delayed until the end of her EP procedure. The patient tolerated the procedure well and was returned to the holding area in stable condition. FINDINGS: LEFT HEART HEMODYNAMICS: No LV pressures were obtained. LEFT VENTRICULOGRAM: No LV-gram was performed. CORONARY ANGIOGRAM: LEFT MAIN: The left main was normal and there was no dampening or ventricularization of the pressure waveform. LEFT ANTERIOR DESCENDING: The LAD was small distally and this responded to 100 mcg of intracoronary nitroglycerin resulting in a normal proximal mid and distal LAD and diagonal branches. LEFT CIRCUMFLEX: The left circumflex was nondominant and there was a 20% ostial left circumflex tubular stenosis. The ongoing left circumflex was normal, as were the obtuse marginal branches. RAMUS INTERMEDIATE BRANCH: There was no ramus intermediate branch. RIGHT CORONARY ARTERY: The right coronary artery was dominant and normal as were the PDA and posterolateral branches. IMPRESSION: Nonischemic cardiomyopathy. Permanent atrial fibrillation with suboptimal rate control, with plans for AV node ablation and biventricular pacemaker insertion by Dr. Taiwo Foster. Essentially normal coronary arteries with 20% ostial left circumflex stenosis with otherwise normal coronaries. RECOMMENDATION: Proceed with EP procedure (planned AV node ablation and biventricular pacemaker insertion). Continue guideline directed medical therapy for cardiomyopathy. Consider statin therapy to LDL less than 70 given 20% plaque in the ostial left circumflex. COMPLICATIONS OF PROCEDURE: None, the patient tolerated the procedure well. HEMOSTASIS: Plans are for Perclose suture closure following the EP procedure. ESTIMATED BLOOD LOSS: Less than 5 mL. CONTRAST TOTAL: 75 mL. DION CURTIS MD Aug 19, 2024 14:50
[2024-08-19] MEDS ORDERED: BACITRACIN 1 EACH PACKET TP ONE (15:09)
[2024-08-19] MEDS ORDERED: TRAM50TA4 PO (15:34)
--- NOTE | 2024-08-19 19:20 | NUR ---
PRESSURE DRESSING REMOVED FROM LEFT SIDE OF CHEST. SCAN AMOUNT OF BLOOD NOTED TO DRESSING. TEGADERM REAPPLIED TO LEFT CHEST D/T PRESSURE DRESSING STICKING TO TEGADERM. INSTRUCTIONS GIVEN TO PT AND PARENTS. DRESSING CHANGES TO LEFT CHEST DEMONSTRATED AND EXPLAINED TO ALL 3 INCLUDING PT. IV REMOVED SITE ASYMPTOMATIC. PT WILL BE SENT OUT VIA WHEELCHAIR. FAMILY DRIVING.
--- NOTE | 2024-08-29 09:41 | PRN ---
Procedure Note INDICATION FOR PROCEDURE: Chronic systolic heart failure, planned AV node ablation PROCEDURE: Upgrade from dual-chamber pacemaker to cardiac resynchronization therapy pacemaker with the addition of left ventricular pacing lead. DATE OF PROCEDURE: 08/29/2024 FISHING FLOATS ASSEMBLER: Dr. Taiwo Basurto PROCEDURE NOTE: The patient was brought to the cath lab radiological technologist in a fasting state. Moderate sedation was achieved with midazolam and fentanyl. The area of the pacemaker was infiltrated with local anesthetic. The existing scar was excised in the pocket was opened. The leads were freed from the fibrous tissue and a capsulectomy was performed. Access was obtained to the left axillary vein and a 9-Chinese peel-away sheath was inserted. The Validus CS lead delivery system was employed. The coronary sinus ostium could not be located despite multiple attempts with different sheaths and different wires. In order to better localize it, a left heart catheterization was performed by Dr. Curry Mendoza. Using multiple views of the left and right coronary arteries with delayed images to assess the venous drainage, it was discovered that the proximal coronary sinus was extremely dilated and the mid and distal coronary sinus was of relatively small caliber. No flow could be seen exiting the ostium. Further attempts were made, but were again unsuccessful. Findings of cardiac catheterization are in the separate report however revealed normal coronary arteries except for a 20% ostial tubular stenosis of the circumflex. Who was contemplated the place a conduction system pacing lead, however due to the already considerable length of the procedure and the absence of all the possible tools potentially needed given her aberrant anatomy, it was decided to abort the procedure at that time. FINDINGS: 1. Extremely dilated proximal coronary sinus, most likely related to ostial stenosis 2. Relatively small caliber of middle and distal coronary sinus 3. Mild single-vessel coronary disease with 20% ostial tubular stenosis of the left circumflex (see separate report). PLAN: 1. The patient will undergo a CT angiogram with delayed venous phase to further assess the coronary sinus anatomy 2. Either further attempts will be made to access the coronary sinus or we will proceed with a conduction system pacing lead. TAIWO BASURTO MD Aug 29, 2024 09:41
== END 2024-08-19 19:49 | disposition home or self-care (01) ==
LOC: DAH 06:22
PROVIDERS: ATTEND Internal Medicine Cardiovascular Disease
DX: R94.39 Abnormal result of other cardiovascular function study (principal); I50.22 Chronic systolic (congestive) heart failure; I48.21 Permanent atrial fibrillation; R00.0 Tachycardia, unspecified; I25.10 Atherosclerotic heart disease of native coronary artery without angina pectoris; I42.8 Other cardiomyopathies; G43.909 Migraine, unspecified, not intractable, without status migrainosus; Z90.49 Acquired absence of other specified parts of digestive tract; Z88.0 Allergy status to penicillin; Z88.1 Allergy status to other antibiotic agents; Z95.0 Presence of cardiac pacemaker; Z79.01 Long term (current) use of anticoagulants; Z79.899 Other long term (current) drug therapy
CPT/HCPCS: 80048; 85025; 85610; 85730; 86850; 86900; 86901; 36415; 93005; 93454; 81025; C1769 ×2; C1894 ×3; C1760; C1900; A4649 ×2; J3010 ×3; J3490 ×5; J0665 ×3; J1644 ×3; J2250 ×5; J3370; Q9967 ×2; A4215; A6251; A4222; A4221; A4663; A4216; A6258; A4606; A4223 ×3; 99156; 99157; J0690

== ENCOUNTER 2025-01-23 12:09 | Emergency (ER) | payer BC ==
[~2025-01-23] VITALS: Ht 160 cm; Wt 65.8 kg
[~2025-01-23 12:09] MED LIST changes: +WARF-57 PO; -WARFARIN PO
--- NOTE | 2025-01-23 12:17 | ERN ---
General Chief Complaint: Stroke Symptoms Stated Complaint: STROKE SYMPTOMS Time Seen by MD: 12:12 Source: patient, family History of Present Illness Initial Comments Patient is a 54-year-old female coming in complaining of right-sided weakness. Per patient she has a stroke in January. She states that the symptoms began and was sudden. Symptoms include right facial right upper extremity right lower extremity numbness and weakness. Allergies: Coded Allergies: Penicillins (Unverified Allergy, Unknown, HIVES, 03/05/15) acetaminophen (Unverified Allergy, Unknown, 03/05/15) pecan nut (Unverified Allergy, Unknown, 03/10/15) Home Meds Active Scripts Metoprolol Tartrate (Metoprolol Tartrate) 50 Mg Tablet, 1 TAB PO BID for 10 Days, #20 TAB 0 Refills Prov:SVITLANA WATERS MD 09/09/24 Warfarin Sodium (Warfarin Sodium) 5 Mg Tablet, 1 TAB PO DAILY for 10 Days, #10 TAB 0 Refills Prov:SVITLANA WATERS MD 09/09/24 Reported Medications Atorvastatin Calcium (Atorvastatin Calcium) 20 Mg Tablet, 20 MG PO HS, TAB 08/18/24 Cholecalciferol (Vitamin D3) (Vitamin D3) 25 Mcg (1000 Unit) Capsule, 25 MCG PO NOON, CAP 08/18/24 Vit B Cmplx 3/FA/Vit C/Biotin (Kim-Demetri Rx Tablet) 1 Mg-60 Mg-300 Mcg Tablet, 1 EACH PO NOON, TAB 08/08/24 Digoxin (Digoxin) 125 Mcg (0.125 Mg) Tablet, 125 MCG PO DAILY, TAB 08/08/24 Dapagliflozin Propanediol (Farxiga) 10 Mg Tablet, 10 MG PO DAILY, TAB 08/08/24 Past Medical History Past Medical History: CVA, Other Medical History Other: UNKNOWN CARDIAC, atrial fibrillation Past Surgical History: Pacer/AICD, Other Surgical History Other: UNKNOWN CARDIAC ROS Dictation CONSTITUTIONAL: No chills, no fever, no weakness, no diaphoresis, no malaise. HEAD/FACE: No signs of trauma. EENT: No eye pain, no blurred vision, no tearing, no double vision, no ear pain, no ear discharge, no nose pain, no nasal congestion, no throat pain, no throat swelling, no mouth pain. RESPIRATORY: No cough, no orthopnea, no SOB, no stridor, no wheezing. CARDIOVASCULAR: No chest pain, no edema, no palpitations, no syncope. GASTROINTESTINAL/ABDOMINAL: No abdominal pain, no constipation, no diarrhea, no nausea, no vomiting. GENITOURINARY: No abnormal discharge, no dysuria, no frequent urination, no hematuria. No complaints of pain in the genitals. MUSCULOSKELETAL: No back pain, no gout, no joint pain, no joint swelling, no muscle pain, no muscle stiffness, no neck pain. INTEGUMENTARY: No change in color, no change in hair/nails, no dryness, no lesion, no lumps, no rash. NEUROLOGICAL/PSYCH: No anxiety, not depressed, no emotional problem, no headache, no numbness, no pre-existing deficit, no history of seizures, no tremors, no weakness. HEMATOLOGIC/LYMPHATIC: Not anemic, no history of blood clots, no apparent bleeding, no bruising, glands not swollen. All Systems Negative, Except as Noted. Physical Exam Physical Exam Dictation VITAL SIGNS: Reviewed. GENERAL APPEARANCE: Alert, oriented x3, no acute distress, obese. HEAD AND FACE: Non-traumatic. EYES: PERRL, pink conjunctivas, eyelid no trauma, anterior chamber clear. EARS: Pinnas intact and no signs of trauma or erythema. Ear canals clear and no discharge. TMs no erythema. NOSE: No discharge, no bleeding. OROPHARYNX: Mouth normal, teeth no caries, tongue pink. Pharynx clear, no erythema. Tonsils no exudates, no abscesses noted. Mucous membrane moist. NECK: Supple, non-tender, no thyromegaly, no masses, no JVD, no bruits. BREAST: Deferred. CHEST: No tenderness, no crepitus, no paradoxical movement, no retractions. LUNGS: Clear, well-ventilated, symmetric, no rales, no wheezing, no rhonchi, no stridor, good breath sounds bilaterally. HEART: Regular rate, regular rhythm, no murmur, no gallops. VASCULAR: No peripheral edema. ABDOMEN: Soft, positive bowel sounds, nondistended, no guarding, nontender, no rebound, no masses no hepatomegaly, no splenomegaly, no Garcia's sign, no hernias. RECTAL: Deferred. GENITAL: Deferred. NEUROLOGICAL: Normal speech, gross motor function intact, gross sensory function intact. MUSCULOSKELETAL: Neck nontender, full range of motion, back nontender, full range of motion. EXTREMITIES: Nontender, full range of motion. SKIN: Color pink, dry, no turgor, no rash, no lacerations, no abrasions, no contusions. LYMPHATICS: Deferred. Results Laboratory and Microbiology Lab and Micro Result Laboratory Tests Test 01/23/25 12:14 01/23/25 12:29 01/23/25 13:41 Whole Blood Glucose 96 MG/DL (70-110) White Blood Count 8.6 K/uL (4.8-10.8) Red Blood Count 4.51 MIL/uL (4.00-5.50) Hemoglobin 13.4 g/dL (12.0-16.0) Hematocrit 42.4 % (36-48) Mean Corpuscular Volume 94.0 fL (79-99) Mean Corpuscular Hemoglobin 29.7 pg (27.0-33.0) Mean Corpuscular Hemoglobin Concent 31.6 g/dL (32.0-36.0) L Red Cell Distribution Width 14.4 % (11.0-15.5) Platelet Count 235 K/uL (130-400) Mean Platelet Volume 10.1 fL (7.5-10.5) Immature Granulocyte % (Auto) 0.2 % (0-1) Neutrophils (%) (Auto) 61.8 % (40.0-77.0) Lymphocytes (%) (Auto) 25.8 % (21.0-51.0) Monocytes (%) (Auto) 5.9 % (3.0-13.0) Eosinophils (%) (Auto) 5.4 % (0.0-8.0) Basophils (%) (Auto) 0.9 % (0.0-5.0) Neutrophils # (Auto) 5.3 K/uL (1.8-7.7) Lymphocytes # (Auto) 2.2 K/uL (1.0-4.8) Monocytes # (Auto) 0.5 K/uL (0.1-1.0) Eosinophils # (Auto) 0.46 K/uL (0.00-0.70) Basophils # (Auto) 0.08 K/uL (0.00-0.20) Absolute Immature Granulocyte (auto 0.02 K/uL (0-1) Nucleated Red Blood Cells 0.0 % (0.0-0.19) Prothrombin Time 38.1 SEC (9.6-11.6) *H Prothromb Time International Ratio 4.14 (0.85-1.15) *H Activated Partial Thromboplast Time 47.7 SEC (26.3-35.5) H Sodium Level 133 mmol/L (136-145) L Potassium Level 4.3 mmol/L (3.5-5.1) Chloride Level 100 mmol/L (101-111) L Carbon Dioxide Level 27 mmol/L (21-32) Blood Urea Nitrogen 8 mg/dL (7-18) Creatinine 0.9 mg/dL (0.5-1.0) Glomerular Filtration Rate Calc 76 mL/min (>90) Random Glucose 103 mg/dL (70-105) Total Calcium 9.4 mg/dL (8.5-10.1) Total Creatine Kinase 42 U/L (21-232) Troponin I High Sensitivity 7 ng/L (4-50) LDL Cholesterol 63 mg/dL (0-99) Urine Color LIGHT-YELLOW (YELLOW) Urine Appearance CLEAR (CLEAR) Urine pH 6.0 (5.0-8.0) Urine Specific [place] 1.017 (1.001-1.031) Urine Protein NEGATIVE mg/dL (NEGATIVE) Urine Glucose (UA) >=1000 mg/dL (NEGATIVE) H Urine Ketones NEGATIVE mg/dL (NEGATIVE) Urine Occult Blood +- (TRACE) (NEGATIVE) H Urine Nitrate NEGATIVE (NEGATIVE) Urine Bilirubin NEGATIVE mg/dL (NEGATIVE) Urine Urobilinogen 0.2 mg/dL (0.2-1.0) Urine Leukocyte Esterase NEGATIVE Bennett/uL Urine RBC 2-5 /HPF (0-1) H Urine WBC 0-1 /HPF (0-1) Urine Squamous Epithelial Cells RARE /HPF (0-2) Urine Bacteria None /HPF (None Seen) EKG/XRAY/US/CT/MRI EKG Comment 01/23/2025 time 12:31 p.m. Ventricular rate [address] wave elevation or depression CT Scan Comment [place] [id number] [address] IMAGING REPORT Signed PATIENT: JOSE ARMANDO AZUL MR#: [id number] : 1970 SEX: F AGE: 54 LOCATION: [facility] ORDER [id number] STATUS: REG ER REPORT#: [id number] SERVICE REASON: r side weakness ORDERING PHYSICIAN: AR FRANK MD PROCEDURE: HEAD WO - CT HEAD/BRAIN W/O CONTRAST EXAM: CT Head Without IV contrast. CLINICAL HISTORY: r side weakness CODE STROKE RIGHT SIDE WEAKNESS PMHX-STROKE TECHNIQUE: Axial computed tomography images of the head/brain without intravenous contrast. COMPARISON: None provided. FINDINGS: BRAIN: No evidence of acute hemorrhage. No mass lesion. Old left MCA infarct. No CT evidence for acute territorial infarct. No midline shift or extra-axial collections. VENTRICLES: No hydrocephalus. ORBITS: The orbits are unremarkable. SINUSES AND MASTOIDS: Opacification of the right maxillary sinus. Remaining paranasal sinuses and mastoid air cells are well-pneumatized. BONES: No fracture. SOFT TISSUES: Unremarkable. IMPRESSION: No acute intracranial abnormality. If clinical concern persist recommend MRI with diffusion weighted sequence for further evaluation. /[place] DICTATED BY: EZEKIEL TERAN Jr., MD DATE: 01/23/251334 ELECTRONICALLY SIGNED BY: EZEKEIL TERAN Jr., MD DATE: 01/23/251334 [place] [address] IMAGING REPORT Signed PATIENT: JOSE ARMANDO AZUL MR#: [id number] : 1970 SEX: F AGE: 54 LOCATION: [facility] ORDER [id number] STATUS: REG ER REPORT#: [id number] SERVICE 1256 REASON: van + ORDERING PHYSICIAN: AR FRANK MD PROCEDURE: CTA HEDNEC - CT ANGIO HEAD AND NECK CLINICAL INFORMATION Code stroke COMPARISON Same day noncontrast head CT. TECHNIQUE Volumetric helical CT images of the head with contrast using CT angiogram technique FINDINGS Known left prior MCA distribution infarct is not significantly changed in the short interval from prior noncontrast head CT. ANTERIOR ARTERIES Intracranial internal carotid arteries: No aneurysmal dilation or flow limiting stenosis. Anterior cerebral arteries: No aneurysmal dilation or flow limiting stenosis. Anterior communicating artery: Present. Middle cerebral arteries: No aneurysmal dilation or flow limiting stenosis. POSTERIOR ARTERIES Intracranial vertebral arteries: No aneurysmal dilation or flow limiting stenosis. Basilar artery: No aneurysmal dilation or flow limiting stenosis. Posterior communicating arteries: Present. Posterior cerebral arteries: No aneurysmal dilation or flow limiting stenosis. Superior cerebellar arteries: No aneurysmal dilation or flow limiting stenosis. NECK ARTERIES Aortic arch: Normal three-vessel origin. Common carotid arteries: No aneurysmal dilation or flow-limiting stenosis. Carotid bifurcation: No aneurysmal dilation or flow-limiting stenosis. Cervical internal carotid arteries: No aneurysmal dilation or flow-limiting stenosis. Cervical vertebral arteries: No aneurysmal dilation or flow-limiting stenosis. Other: Left chest wall pacemaker. Complete opacification of the right maxillary sinus. Lung apices are clear. No acute osseous abnormality. Soft tissues are unremarkable for technique. IMPRESSION No aneurysmal dilation or flow-limiting stenosis. Known left prior MCA distribution infarct is not significantly changed in the short interval from prior noncontrast head CT. /[place] DICTATED BY: BETHEL DIEGO MD DATE: 01/23/251638 ELECTRONICALLY SIGNED BY: BETHEL DIEGO MD DATE: 01/23/251638 [facility] MDM: Differential diagnosis: CVA, TIA, history of strokes, Rationale: Tests considered and ordered secondary to shared decision making include: Previous outside records reviewed: Old ER visits. Risk of complication and/or morbidity or mortality of patient management: None Medications-Per medication reconciliation Need for hospitalization: Patient does meet criteria for hospitalization. Need for emergency major/minor surgery: No There are no social concerns with this patient. Prescription drug management Prescriptions will include symptomatic care Patient's prior external medical records from other ER visits were reviewed by me as indicated. Prior testing and results from previous visits were reviewed. Prior tests were taken into account with medical decision making and resource utilization, independent historian/historians were used to obtain complete medical history. I independently interpreted the test that were performed, results were reviewed by me and considered findings on radiology if ordered. Medical management and examination interpretation discussions were had by me with other qualified healthcare professionals as indicated for the patient's care. Patient is a 54-year-old female coming in complaining of right-sided facial upper extremity and lower extremity numbness and weakness. Patient does has a history of a stroke. Patient states that last stroke happened in August. Patient was evaluated by teleneurologist based on his recommendation due to the presentation of symptoms which were yesterday patient should be admitted for further stroke workup. Spoke to steph JONES MD aware of patient's status and imaging studies. Patient will be transferred patient has a remained with a NIH of 15. ED Course Orders Procedure Category Date Status Time Cbc With Differential LAB 01/23/25 Complete 12:14 Prothrombin Time With LAB 01/23/25 Complete INR 12:14 Partial LAB 01/23/25 Complete Thromboplastin Time 12:14 Ct Head/Brain W/O CT 01/23/25 Resulted Contrast 12:14 Chest 1vw RAD 01/23/25 Resulted 12:14 12 Lead Ekg Tracing- EKG 01/23/25 Complete Technical 12:14 Creatine Kinase, Total LAB 01/23/25 Complete 12:14 Ldl Direct LAB 01/23/25 Complete 12:14 Troponin I High LAB 01/23/25 Complete Sensitivity 12:14 Urinalysis Profile LAB 01/23/25 Complete 12:14 Bedside Glucose CPOE 01/23/25 Transmitted Fingerstick 12:14 Basic Metabolic Panel LAB 01/23/25 Complete 12:14 Ct Angio Head And Neck CT 01/23/25 Resulted 12:56 Iohexol (Omnipaque) PHA 01/23/25 Complete 13:33 Current Medications Medications (Trade) Dose Ordered Sig/Lulú Route PRN Reason Start Time Stop Time Status Last Admin Dose Admin Iohexol (Omnipaque) 75 ml STK-MED ONCE IV 01/23/25 13:33 01/23/25 13:34 DC Tranexamic Acid (Cyklokapron) 1,000 mg STK-MED ONCE .ROUTE 01/23/25 12:19 01/23/25 12:19 DC Vital Signs Date Time Temp Pulse Resp B/P (MAP) Pulse Ox O2 Delivery O2 Flow Rate FiO2 01/23/25 13:52 98.8 68 20 142/64 98 Room Air* 0 21 01/23/25 12:44 98.8 57 20 140/62 98 Room Air* 0 21 01/23/25 12:12 98.8 53 20 142/58 98 Room Air Critical Care Note Comments Critical Care Procedure Note Authorized and Performed by: me Total critical care time: Approximately 36 minutes Due to a high probability of clinically significant, life threatening deterioration, the patient required my highest level of preparedness to intervene emergently and I personally spent this critical care time directly and personally managing the patient. This critical care time included obtaining a h istory; examining the patient; pulse oximetry; ordering and review of studies; arranging urgent treatment with development of a management plan; evaluation of patient's response to treatment; frequent reassessment; and, discussions with other providers. This critical care time was performed to assess and manage the high probability of imminent, life-threatening deterioration that could result in multi-organ failure. It was exclusive of separately billable procedures and treating other patients and teaching time. Please see MDM section and the rest of the note for further information on patient assessment and treatment. DX & DISP Disposition: Transfer Departure Impression: Primary Impression: CVA (cerebral vascular accident) Additional Impression: History of stroke Condition: Stable Referrals: GEORGIE BRUNSON MD (PCP) AR FRANK MD Jan 23, 2025 12:17
[2025-01-23] MEDS: TRANEXAMIC ACID 1000MG/10ML ONE (12:19)
--- NOTE | 2025-01-23 12:27 | NUR ---
PT BACK FROM CT SCAN INTO ED ROOM 3
--- NOTE | 2025-01-23 12:29 | NUR ---
TELENEURO: ED TELENEURO CART 1 JUST PLACED IN ROOM W/PT AND HER FAMILY MEMBER
[2025-01-23 12:33] LABS: IMMATURE GRANULOCYTE ABSOLUTE 0.02 K/uL (0-1); NUCLEATED RED BLOOD CELLS 0.0 % (0.0-0.19); PLATELET COUNT (AUTO) 235 K/uL (130-400); RED BLOOD CELL COUNT(AUTO) 4.51 MIL/uL (4.00-5.50); RED CELL DISTRIBUTION WIDTH 14.4 % (11.0-15.5); WHITE BLOOD COUNT (AUTO) 8.6 K/uL (4.8-10.8)
--- NOTE | 2025-01-23 12:35 | HMCIMG ---
EXAM: CT Head Without IV contrast. CLINICAL HISTORY: r side weakness CODE STROKE RIGHT SIDE WEAKNESS PMHX-STROKE TECHNIQUE: Axial computed tomography images of the head/brain without intravenous contrast. COMPARISON: None provided. FINDINGS: BRAIN: No evidence of acute hemorrhage. No mass lesion. Old left MCA infarct. No CT evidence for acute territorial infarct. No midline shift or extra-axial collections. VENTRICLES: No hydrocephalus. ORBITS: The orbits are unremarkable. SINUSES AND MASTOIDS: Opacification of the right maxillary sinus. Remaining paranasal sinuses and mastoid air cells are well-pneumatized. BONES: No fracture. SOFT TISSUES: Unremarkable. IMPRESSION: No acute intracranial abnormality. If clinical concern persist recommend MRI with diffusion weighted sequence for further evaluation. /[place]
--- NOTE | 2025-01-23 12:36 | NUR ---
STROKE CALCULATION PERFORMED AND REVIEWED W/OLLIE SELBY. FORM FOR ADMINISTRATION OF TNK W/OLLIE SELBY
--- NOTE | 2025-01-23 12:37 | EKG ---
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1970 Requested By: AR FRANK Order Number: [id number] Reading MD: Xuan Austin Measurements Intervals [place] Rate: 61 P: 0 WV: 0 QRS: -55 QRSD: 90 T: 174 QT: 350 QTc: 354 Interpretive Statements Atrial fibrillation Left anterior fascicular block Compared to ECG 09/06/2024 21:54:39 Left anterior fascicular block now present Ventricular-paced complex(es) or rhythm no longer present Left-axis deviation no longer present Left ventricular hypertrophy no longer present ST (T wave) deviation no longer present Electronically Signed On 01-23-2025 20:30:59 MULTI OPERATION MACHINE OPERATOR by Xuan Austin Please click the below link to view image of tracing.
[2025-01-23 12:41] LABS: CREATININE 0.9 mg/dL (0.5-1.0); GLOMERULAR FILTR. RATE CALC 76.0 mL/min (>90); GLUCOSE,RANDOM 103.0 mg/dL (70-105); SODIUM SERUM 133.0 mmol/L (136-145); UREA NITROGEN, BLOOD 8.0 mg/dL (7-18)
[2025-01-23 12:47] LABS: CREATINE KINASE, TOTAL 42.0 U/L (21-232); LDL DIRECT 63.0 mg/dL (0-99)
[2025-01-23 13:05] LABS: INR 4.14 (0.85-1.15)
[2025-01-23] MEDS ORDERED: IOHEXOL-350 75 ML VIAL IV ONE (13:33)
--- NOTE | 2025-01-23 14:22 | HMCIMG ---
EXAM: CR Chest, 1 View. CLINICAL HISTORY: cp COMPARISON: None provided. FINDINGS: Left cardiac pacer with dual leads. Prior median sternotomy and cardiac valve replacement. Breast attenuation overlies the lower chest on the single AP view provided. LUNGS: The lungs show no infiltrate or other acute finding. PLEURAL SPACES: No evidence of pleural effusion or pneumothorax. MEDIASTINUM: Mild to moderate cardiomegaly. BONES: No acute osseous abnormality. IMPRESSION: Mild to moderate cardiomegaly. Left cardiac pacer. Prior median sternotomy and cardiac valve replacement changes. No definite acute cardiopulmonary process. /[place]
[2025-01-23 15:05] LABS: APPEARANCE,URINE CLEAR (CLEAR); GLUCOSE, URINE (UA) >=1000 mg/dL (NEGATIVE); LEUKOCYTE ESTERASE ,URINE NEGATIVE Leu/uL (NEGATIVE); NITRATE,URINE NEGATIVE (NEGATIVE); OCCULT BLOOD,URINE +- (TRACE) (NEGATIVE)
[2025-01-23 15:06] LABS: ADD UA MICROSCOPIC YES
[2025-01-23 15:07] LABS: SQUAMOUS EPITHELIAL CELL,UR RARE /HPF (0-2)
--- NOTE | 2025-01-23 15:39 | HMCIMG ---
CLINICAL INFORMATION Code stroke COMPARISON Same day noncontrast head CT. TECHNIQUE Volumetric helical CT images of the head with contrast using CT angiogram technique FINDINGS Known left prior MCA distribution infarct is not significantly changed in the short interval from prior noncontrast head CT. ANTERIOR ARTERIES Intracranial internal carotid arteries: No aneurysmal dilation or flow limiting stenosis. Anterior cerebral arteries: No aneurysmal dilation or flow limiting stenosis. Anterior communicating artery: Present. Middle cerebral arteries: No aneurysmal dilation or flow limiting stenosis. POSTERIOR ARTERIES Intracranial vertebral arteries: No aneurysmal dilation or flow limiting stenosis. Basilar artery: No aneurysmal dilation or flow limiting stenosis. Posterior communicating arteries: Present. Posterior cerebral arteries: No aneurysmal dilation or flow limiting stenosis. Superior cerebellar arteries: No aneurysmal dilation or flow limiting stenosis. NECK ARTERIES Aortic arch: Normal three-vessel origin. Common carotid arteries: No aneurysmal dilation or flow-limiting stenosis. Carotid bifurcation: No aneurysmal dilation or flow-limiting stenosis. Cervical internal carotid arteries: No aneurysmal dilation or flow-limiting stenosis. Cervical vertebral arteries: No aneurysmal dilation or flow-limiting stenosis. Other: Left chest wall pacemaker. Complete opacification of the right maxillary sinus. Lung apices are clear. No acute osseous abnormality. Soft tissues are unremarkable for technique. IMPRESSION No aneurysmal dilation or flow-limiting stenosis. Known left prior MCA distribution infarct is not significantly changed in the short interval from prior noncontrast head CT. /[place]
[2025-01-23 17:23] VITALS: BP 144/68; PULSE 62; RESP 20; TEMP 98.8; O2SAT 98
--- NOTE | 2025-01-23 17:41 | NUR ---
TRANSFER [facility], ER NURSE DINERO
== END 2025-01-23 17:30 | disposition short-term general hospital (02) ==
LOC: EDH 12:09
DX: I63.9 Cerebral infarction, unspecified (principal); I48.91 Unspecified atrial fibrillation; Z79.01 Long term (current) use of anticoagulants; Z79.84 Long term (current) use of oral hypoglycemic drugs; Z79.899 Other long term (current) drug therapy; Z88.0 Allergy status to penicillin; Z91.018 Allergy to other foods; Z95.2 Presence of prosthetic heart valve; Z95.810 Presence of automatic (implantable) cardiac defibrillator
CPT/HCPCS: 99291; 70450; 71045; 82550; 83721; 84484; 80048; 85025; 85610; 85730; 82948; 81001; 36415; 70496; 70498; 93005; Q9967; J3490